=== PATIENT | female | born 1995 | race Asian ===

== ENCOUNTER 2019-10-10 23:46 | Emergency (ER) | payer OTHER ==
--- NOTE | 2019-10-11 01:24 | ED ---
HPI Febrile Illness - HPI Summary HPI Summary: The patient is a 24-year-old female presenting to [facility] with a chief complaint of fever, congestion, and general weakness onset today. She reports that three days ago, she was seen at [facility] for a left ear ache, where she was diagnosed with an ear infection and prescribed Augmentin and Floxin, and she was instructed to take Advil and Sudafed. The next day, the ear began bleeding so she went to [facility] again and was told that she still had an infection , but if she developed a fever to go to the ER. Today, she suddenly felt feverish with measured temp, generalized weakness and mylagias, chills, congestion, nausea, and vomiting. She denies diarrhea. Symptoms rated 3/10 in severity. LNMP: 09/19/2019. No recent traveling. No PMHx. FHx: cardiac disease, diabetes. Nonsmoker, no EtOH, no substance use. Medications reviewed. Allergies noted. - History of Current Complaint Chief Complaint: EDFever Time Seen by Provider: 10/11/19 00:58 Hx Obtained From: Patient Onset/Duration: Started Hours Ago, Still Present Timing: Constant Initial Severity: Moderate Current Severity: Moderate Pain Intensity: 3 Pain Scale Used: 0-10 Numeric Aggravating Factors: Nothing Alleviating Factors: Nothing Associated Signs and Symptoms: Chills, Myalgia, Nausea, Vomiting, Weakness - generalized, Other: - congestion, left ear ache with bleeding; Negative: diarrhea - Allergy/Home Medications Allergies/Adverse Reactions: Allergies Allergy/AdvReac Type Severity Reaction Status Date / Time No Known Allergies Allergy Verified 10/10/19 23:52 Home Medications: Home Medications Amoxicillin/Clavulanate TAB* [Augmentin TAB 875*] 875 mg PO BID 10/11/19 [ History Confirmed 10/11/19] Ofloxacin 0.3% (Ear Drop)* [Floxin 0.3% OTIC.LEONILA (Ear Drop)] 10 drop BOTH EARS DAILY 10/11/19 [History Confirmed 10/11/19] Pseudoephedrine HCl [Sudafed] 30 mg PO Q6H PRN 10/11/19 [History Confirmed 10/11] PMH/Surg Hx/FS Hx/Imm Hx Endocrine/Hematology History: Denies: Hx Diabetes Respiratory History: Denies: Hx Asthma Sensory History: Reports: Hx Contacts or Glasses Denies: Hx Deafness Opthamlomology History: Reports: Hx Contacts or Glasses Denies: Hx Legally Blind EENT History: Denies: Hx Deafness - Surgical History Surgical History: Yes Surgery Procedure, Year, and Place: wisdom teeth, stitches on face Infectious Disease History: No Infectious Disease History: Denies: Traveled Outside the [place] in Last 30 Days - Family History Known Family History: Positive: Cardiac Disease, Diabetes - Social History Alcohol Use: None Hx Substance Use: No Substance Use Type: Reports: None Hx Tobacco Use: No Smoking Status (MU): Never Smoked Tobacco Review of Systems - ROS Summary Review of Systems Summary: Home Medications Medication Instructions Recorded Confirmed Type Amoxicillin/Clavulanate TAB* 875 mg PO BID 10/11/19 10/11/19 History [Augmentin TAB 875*] Ofloxacin 0.3% (Ear Drop)* [Floxin 10 drop BOTH EARS DAILY 10/11/19 10/11/19 History 0.3% OTIC.LEONILA (Ear Drop)] Pseudoephedrine HCl [Sudafed] 30 mg PO Q6H PRN 10/11/19 10/11/19 History Positive: Fever, Chills Positive: Ear Ache - left Positive: Other - congestion Positive: Vomiting, Nausea. Negative: Diarrhea Positive: Myalgia Positive: Weakness - generalized All Other Systems Reviewed And Are Negative: Yes Physical Exam - Summary Physical Exam Summary: General: Well-developed, Well-nourished female. Mildly ill-appearing. No acute distress. HEENT: Normocephalic, Atraumatic. Ears: Left ear canal is erythematous but TM is intact Nares: Nasal congestion with clear discharge. Eyes: Conjuctiva normal, PERRL. Oropharynx: Clear, mucous membranes moist, (-) exudates. Neck: Soft, FROM, (-) lymphadenopathy, (-) thyromegaly, (-) JVD. Cardiovascular: Normal sinus rhythm, (-) murmur. Lungs: Clear to auscultation bilaterally (-) wheezes, (-) rales, (-) rhonchi. Abdomen: Soft, non-tender, non-distended, (-) organomegaly, normal bowel sounds. Back: (-) CVA tenderness Extremities: No edema. Skin: Warm, dry, (-) rash. Neuro: Alert and oriented x3, moves all extremities equally. No ataxia. No gait disturbance. No sensory deficit. Normal strength, normal sensation. Psychiatric: Mood normal, affect normal. Triage Information Reviewed: Yes Vital Signs On Initial Exam: Initial Vitals Temp Pulse Resp BP Pulse Ox 99.3 F 106 16 131/78 99 10/10/19 23:47 10/10/19 23:47 10/10/19 23:47 10/10/19 23:47 10/10/19 23:47 Vital Signs Reviewed: Yes Procedures - Sedation Patient Received Moderate/Deep Sedation with Procedure: No Diagnostics - Vital Signs Vital Signs Temp Pulse Resp BP Pulse Ox 10/11/19 01:12 100.7 F 10/11/19 00:20 107 121/81 98 10/11/19 00:19 106 97 10/10/19 23:47 99.3 F 106 16 131/78 99 - Laboratory Lab Statement: Any lab studies that have been ordered have been reviewed, and results considered in the medical decision making process. Re-Evaluation - Re-Evaluation First Eval Re-Evaluation Time: 02:00 Comment: I have discussed results with the patient. Discussed symptoms that warrant immediate return to ED. Course/Dx - Course Course Of Treatment: 24-year-old female presents with fever and congestion. Patient states she started having left ear pain and was seen at [facility]. Diagnosed with otitis media started on Augmentin. Today however she feels worse. Suddenly has headache and runny nose. Cough. Fever. Flu swab positive for influenza B. Patient started on Tamiflu. Advised rest and plenty of fluids. Off school one week. Follow-up PCP. Follow up sooner for any worsening symptoms. - Diagnoses Provider Diagnoses: Influenza B Discharge ED - Sign-Out/Discharge Documenting (check all that apply): Patient Departure - Patient will be discharged home. - Discharge Plan Condition: Stable Disposition: HOME Prescriptions: Oseltamivir CAP* [Tamiflu CAP*] 75 mg PO BID #10 cap Patient Education Materials: Influenza (DC) Referrals: [facility] [Provider Group] - 3 Days Additional Instructions: Please take Tamiflu as prescribed. Please follow up with your primary care provider in 2-3 days. Return to the emergency department for any new or worsening symptoms. - Billing Disposition and Condition Condition: STABLE Disposition: Home - Attestation Statements Document Initiated by Adeniblee: Yes Documenting Scribe: Lupe Fischer Provider For Whom Luis is Documenting (Include Credential): Dr. Dina Lino MD Scribe Attestation: I, Lupe Fischer, scribed for Dr. Dina Lino MD on 10/11/19 at 0250. Scribe Documentation Reviewed: Yes Provider Attestation: The documentation as recorded by the Lupe kaye accurately reflects the service I personally performed and the decisions made by me, Dr. Dina Lino MD Status of Scribe Document: Viewed
[2019-10-11 01:42] LABS: Influenza B Molecular POSITIVE (Negative)
[2019-10-11] MEDS ORDERED: Oseltamivir CAP* 75 MG CAP PO ONE (01:56)
[2019-10-11 02:19] VITALS: BP 112/73
== END 2019-10-11 02:18 | disposition home or self-care (01) ==
LOC: ED 23:46
DX: J10.1 Influenza due to other identified influenza virus with other respiratory manifestations (principal); R50.9 Fever, unspecified; R11.2 Nausea with vomiting, unspecified; H92.02 Otalgia, left ear; R09.81 Nasal congestion; R53.1 Weakness
CPT/HCPCS: 99282; A9270-GY